=== PATIENT | female | born 1970 | race Caucasian/White ===

== ENCOUNTER 2019-03-24 10:20 | Emergency (ER) | payer MEDICAID ==
[~2019-03-24] VITALS: Ht 160 cm; Wt 47.6 kg
[2019-03-24 10:45] VITALS: BP 101/66
== END 2019-03-24 13:04 | disposition home or self-care (01) ==
LOC: ER 10:20
DX: K72.90 Hepatic failure, unspecified without coma (principal); Z76.0 Encounter for issue of repeat prescription

== ENCOUNTER 2019-06-06 09:07 | Emergency (ER) | payer MEDICAID ==
[~2019-06-06] VITALS: Ht 160 cm; Wt 47.6 kg
[2019-06-06 11:25] VITALS: BP 101/58
[2019-06-06 13:36] LABS: BUN/Creatinine Ratio 12.7; Calcium 8.6 mg/dL (8.5-10.1); Potassium 3.9 mmol/L (3.5-5.1)
== END 2019-06-06 14:39 | disposition home or self-care (01) ==
LOC: ER 09:07
DX: K72.90 Hepatic failure, unspecified without coma (principal); Z76.0 Encounter for issue of repeat prescription; Z88.0 Allergy status to penicillin
CPT/HCPCS: 36415; 80048

== ENCOUNTER 2019-07-18 07:28 | Emergency (ER) | payer MEDICAID ==
[~2019-07-18] VITALS: Ht 160 cm; Wt 45.4 kg
[2019-07-18 08:07] VITALS: BP 93/58
== END 2019-07-18 09:10 | disposition home or self-care (01) ==
LOC: ER 07:28
DX: K74.60 Unspecified cirrhosis of liver (principal); Z76.0 Encounter for issue of repeat prescription; Z88.0 Allergy status to penicillin

== ENCOUNTER 2019-11-14 14:47 | Emergency (ER) | payer MEDICAID ==
[~2019-11-14] VITALS: Ht 160 cm; Wt 47.6 kg
[2019-11-14 15:01] VITALS: BP 94/62
== END 2019-11-14 16:33 | disposition home or self-care (01) ==
LOC: ER 14:47
DX: K74.60 Unspecified cirrhosis of liver (principal); Z76.0 Encounter for issue of repeat prescription

== ENCOUNTER 2019-12-04 18:54 | Inpatient (IN) | payer MEDICAID ==
[~2019-12-04] VITALS: Ht 160 cm; Wt 50.1 kg
[2019-12-04] MEDS ORDERED: SODIUM CHLORIDE 0.9% 1,000 ML IV ONE (19:30)
[2019-12-04] MEDS ORDERED: HYDROcodone-ACET 10/325MG TAB PO ONE (23:30)
[2019-12-05 00:15] LABS: Hematocrit 37.9 % (36.0-46.0); Hemoglobin 12.7 g/dL (12.2-16.2); Mean Corpuscular Hemoglobin 28.8 pg (28.0-32.0); Mean Corpuscular Hgb Conc. 33.6 g/dL (32.0-36.0); Mean Corpuscular Volume 85.7 fL (80.0-100.0); Platelet Count (auto) 390 10^3/uL (140-450); Red Blood Cells 4.42 10^6/uL (4.0-5.20); Red Cell Distribution Width 12.4 % (11.8-14.3); White Blood Cell 17.6 10^3/uL (4.4-10.8)
[2019-12-05 00:19] LABS: Basophils % (manual) 0 (0.0-2.0); Blast Cells 0; Metamyelocytes % 0; Myelocytes % 0; Promyelocytes % 0
[2019-12-05 00:27] LABS: Albumin 2.7 g/dL (3.4-5.0); Anion Gap 9 (5-15); Blood Urea Nitrogen 10 mg/dL (7-18); Calcium 8.5 mg/dL (8.5-10.1); Carbon Dioxide 24 mmol/L (21-32); Chloride 99 mmol/L (98-107); Potassium 3.5 mmol/L (3.5-5.1); Sodium 132 mmol/L (136-145)
[2019-12-05 00:30] LABS: Alanine Aminotransferase 20 U/L (13-56); Aspartate Aminotransferase 20 U/L (15-37); GFR African American 95 mL/min; GFR Non-African American 78 mL/min; Glucose 110 mg/dL (74-106)
[2019-12-05 00:33] LABS: Alkaline Phosphatase 103 U/L (45-117); Bilirubin, Total 0.8 mg/dL (0.2-1.0); Total Protein 7.7 g/dL (6.4-8.2)
[2019-12-05 01:17] LABS: Band Neutrophils % (manual) 6; Eosinophils % (manual) 2 (0-7); Lymphocytes % (manual) 7 (10.0-50.0); Monocytes % (manual) 5 (0-12); Reactive Lymphocytes 1
[2019-12-05] MEDS ORDERED: cefTRIAXone SOD 1,000 MG VL IM ONE (02:45)
[2019-12-05] MEDS ORDERED: CLINDAMYCIN HCL 150 MG CAP PO ONE (02:45)
[2019-12-05] MEDS ORDERED: ONDANSETRON HCL 4 MG/2 ML VIAL IV PRN (06:30)
[2019-12-05] MEDS ORDERED: LORazepam 0.5 MG TAB PO PRN (06:30)
[2019-12-05] MEDS ORDERED: DOCUSATE SOD 100 MG CAP PO PRN (06:30)
[2019-12-05] MEDS ORDERED: ACETAMINOPHEN 325 MG TAB PO PRN (06:30)
[2019-12-05 08:36] LABS: Basophils # (auto) 0 10 ^3/uL (0-0.2); Basophils % (auto) 0.3 % (0.0-2.0); Eosinophils # (auto) 0.2 10 ^3/uL (0-0.8); Eosinophils % (auto) 1.5 % (0.0-7.0); Hematocrit 40.3 % (36.0-46.0); Hemoglobin 13.1 g/dL (12.2-16.2); Lymphocytes # (auto) 0.9 10 ^3/uL (0.4-5.4); Mean Corpuscular Hemoglobin 28.4 pg (28.0-32.0); Mean Corpuscular Hgb Conc. 32.4 g/dL (32.0-36.0); Mean Corpuscular Volume 87.8 fL (80.0-100.0); Monocytes # (auto) 1.7 10 ^3/uL (0-1.3); Monocytes % (auto) 11.1 % (0.0-12.0); Neutrophils # (auto) 12.6 10 ^3/uL (1.6-8.6); Neutrophils % (auto) 81.1 % (37.0-80.0); Platelet Count (auto) 382 10^3/uL (140-450); Red Blood Cells 4.59 10^6/uL (4.0-5.20); Red Cell Distribution Width 12.6 % (11.8-14.3); White Blood Cell 15.5 10^3/uL (4.4-10.8)
[2019-12-05 08:55] LABS: Calcium 9.2 mg/dL (8.5-10.1); Potassium 3.5 mmol/L (3.5-5.1)
[2019-12-05 08:58] LABS: BUN/Creatinine Ratio 12.5
[2019-12-05] MEDS ORDERED: cefTRIAXone 1GM/50ML D5W 50 ML IV SCH (10:00)
[2019-12-05] MEDS: CLINDAMYCIN 600MG IV 50 ML IV SCH ×2 (12:00→15:13)
[2019-12-05] MEDS: HYDROcodone-ACET 5/325MG TAB PO PRN (12:04)
[2019-12-05] MEDS: PIPERACILLIN-TAZOB 3.375GM 100 ML IV SCH (18:43)
[2019-12-05 18:48] LABS: Urine Bacteria FEW /hpf (None Seen); Urine Blood Negative /uL (Negative); Urine Specific Gravity 1.011 (1.001-1.035); Urine WBC 8 /hpf (0 - 5)
[2019-12-05 19:20] LABS: Alcohol, Urine < 3.0 mg/dL (0-10); Amphetamine Screen, Urine NEGATIVE (NEGATIVE); Barbiturate Scree,Urine NEGATIVE (NEGATIVE); Benzodiazephine Screen, Urine NEGATIVE (NEGATIVE); Cannabinoid Screen, Urine NEGATIVE (NEGATIVE); Cocaine Screen, Urine NEGATIVE (NEGATIVE)
[2019-12-05 19:28] LABS: Opiate Scree,Urine POSITIVE (NEGATIVE); Phencyclidine Screen, Urine NEGATIVE (NEGATIVE)
[2019-12-05 20:43] VITALS: BP 107/69
[2019-12-05] MEDS: MORPHINE SULF INJ 2 MG/ML SYRINGE 1ML IV PRN (21:17)
[2019-12-05] MEDS: TEMAZEPAM 15 MG CAP PO PRN (22:10)
[2019-12-06] MEDS: PIPERACILLIN-TAZOB 3.375GM 100 ML IV SCH ×5 (00:28→23:30)
[2019-12-06 01:23] VITALS: BP 107/69
[2019-12-06] MEDS ORDERED: SPIR25TA8 PO (02:12)
[2019-12-06] MEDS ORDERED: FURO1TAB33 PO (02:12)
[2019-12-06] MEDS ORDERED: POTA10TA51 PO (02:12)
[2019-12-06] MEDS: MORPHINE SULF INJ 2 MG/ML SYRINGE 1ML IV PRN ×5 (03:15→21:10)
[2019-12-06 05:00] VITALS: BP 123/70
[2019-12-06 08:05] LABS: Basophils # (auto) 0.1 10 ^3/uL (0-0.2); Basophils % (auto) 0.4 % (0.0-2.0); Eosinophils # (auto) 0.2 10 ^3/uL (0-0.8); Eosinophils % (auto) 1.7 % (0.0-7.0); Hematocrit 31.7 % (36.0-46.0); Hemoglobin 10.4 g/dL (12.2-16.2); Lymphocytes # (auto) 1.4 10 ^3/uL (0.4-5.4); Mean Corpuscular Hemoglobin 28.3 pg (28.0-32.0); Mean Corpuscular Hgb Conc. 32.7 g/dL (32.0-36.0); Mean Corpuscular Volume 86.4 fL (80.0-100.0); Monocytes # (auto) 1.5 10 ^3/uL (0-1.3); Monocytes % (auto) 11.6 % (0.0-12.0); Neutrophils # (auto) 9.5 10 ^3/uL (1.6-8.6); Neutrophils % (auto) 75.3 % (37.0-80.0); Platelet Count (auto) 381 10^3/uL (140-450); Red Blood Cells 3.67 10^6/uL (4.0-5.20); Red Cell Distribution Width 12.2 % (11.8-14.3); White Blood Cell 12.6 10^3/uL (4.4-10.8)
[2019-12-06 08:19] LABS: Magnesium 2.2 mg/dL (1.6-2.6); Potassium 3.3 mmol/L (3.5-5.1)
[2019-12-06 08:34] LABS: BUN/Creatinine Ratio 8.2; Bilirubin, Total 0.4 mg/dL (0.2-1.0); CRP High Sensitivity 13.2 mg/dL (< 0.3); Calcium 8.3 mg/dL (8.5-10.1); Phosphorus 2.4 mg/dL (2.5-4.90); Total Protein 6.2 g/dL (6.4-8.2)
[2019-12-06 09:00] VITALS: BP 124/77
[2019-12-06 09:02] LABS: INR 1.01 (0.9-1.15); Partial Thromboplastin Time 38.9 sec (23.64-32.05)
[2019-12-06 09:31] LABS: Hepatitis B Surface Antibody Negative
[2019-12-06 10:03] LABS: Hepatitis A Total Antibody Negative
[2019-12-06] MEDS ORDERED: POTASSIUM CHL 20 Meq TABLET PO ONE (10:15)
[2019-12-06] MEDS: HYDROcodone-ACET 5/325MG TAB PO PRN ×2 (10:30→23:00)
[2019-12-06 11:44] LABS: Hepatitis B Core Total AB Negative; Hepatitis B Surface Antigen Negative (Negative); Hepatitis C Antibody Negative (Negative)
[2019-12-06] MEDS: TEMAZEPAM 15 MG CAP PO PRN (23:31)
[2019-12-07 00:05] VITALS: BP 101/67
[2019-12-07] MEDS: MORPHINE SULF INJ 2 MG/ML SYRINGE 1ML IV PRN ×4 (01:35→14:25)
[2019-12-07] MEDS: HYDROcodone-ACET 5/325MG TAB PO PRN (04:50)
[2019-12-07 05:40] VITALS: BP 91/57
[2019-12-07] MEDS: PIPERACILLIN-TAZOB 3.375GM 100 ML IV SCH ×2 (05:50→12:00)
[2019-12-07 09:00] VITALS: BP 97/58
[2019-12-07 13:00] VITALS: BP 98/59
[2019-12-07 16:00] VITALS: BP 98/59
== END 2019-12-07 16:59 | disposition home or self-care (01) | DRG 720 ==
LOC: ER 18:54 → TELE 18:55 → TELE-WESTW 12-05 20:52
PROVIDERS: ADMIT Hospitalist; ATTEND Internal Medicine
PROC: 05HY33Z Insertion of Infusion Device into Upper Vein, Percutaneous Approach (ICD-10-PCS; principal; 2019-12-05)
DX: A41.9 Sepsis, unspecified organism (principal); L03.116 Cellulitis of left lower limb; K74.60 Unspecified cirrhosis of liver; F11.10 Opioid abuse, uncomplicated; M60.009 Infective myositis, unspecified site; F15.10 Other stimulant abuse, uncomplicated; R00.0 Tachycardia, unspecified; Z88.0 Allergy status to penicillin; Z81.1 Family history of alcohol abuse and dependence; Z79.899 Other long term (current) drug therapy; E44.0 Moderate protein-calorie malnutrition
CPT/HCPCS: 36415; 73700; 80048; 80053; 80061; 80307; 81001; 82550; 83036; 83605; 83735; 84100; 84439; 84443; 85007; 85025; 85027; 85610; 85730; 86141; 86703; 86704; 86706; 86708; 86803; 87040; 87340; 93005; 96361; 96365; 96367; 96372; 96375; G0378; J0696; J2543

== ENCOUNTER 2020-01-21 10:06 | Emergency (ER) | payer MEDICAID ==
[~2020-01-21] VITALS: Ht 160 cm; Wt 45.4 kg
[~2020-01-21 10:06] MED LIST: FURO1TAB33 PO; POTA10TA51 PO; SPIR25TA8 PO
[2020-01-21 11:50] VITALS: BP 103/64
== END 2020-01-21 12:03 | disposition home or self-care (01) ==
LOC: ER 10:06
DX: K74.60 Unspecified cirrhosis of liver (principal); Z76.0 Encounter for issue of repeat prescription

== ENCOUNTER 2020-02-12 14:59 | Emergency (ER) | payer MEDICAID ==
[~2020-02-12] VITALS: Ht 165.1 cm; Wt 59.0 kg
[2020-02-12 15:51] LABS: Hemoglobin 12.7 g/dL (12.2-16.2); Mean Corpuscular Hemoglobin 26.8 pg (28.0-32.0); Mean Corpuscular Hgb Conc. 32.7 g/dL (32.0-36.0); Mean Corpuscular Volume 81.9 fL (80.0-100.0); Platelet Count (auto) 285 10^3/uL (140-450); Red Blood Cells 4.76 10^6/uL (4.0-5.20); Red Cell Distribution Width 13.1 % (11.8-14.3); White Blood Cell 8.3 10^3/uL (4.4-10.8)
[2020-02-12 15:55] LABS: Basophils % (manual) 0 (0.0-2.0); Blast Cells 0; Metamyelocytes % 0; Myelocytes % 0; Promyelocytes % 0; Reactive Lymphocytes 0
[2020-02-12 16:08] LABS: Albumin 3.3 g/dL (3.4-5.0); Anion Gap 4 (5-15); Blood Urea Nitrogen 8 mg/dL (7-18); Calcium 8.9 mg/dL (8.5-10.1); Carbon Dioxide 25 mmol/L (21-32); Chloride 104 mmol/L (98-107); Glucose 106 mg/dL (74-106); Potassium 3.6 mmol/L (3.5-5.1); Sodium 133 mmol/L (136-145)
[2020-02-12 16:12] LABS: Alanine Aminotransferase 17 U/L (13-56); Alkaline Phosphatase 87 U/L (45-117); Aspartate Aminotransferase 15 U/L (15-37); Bilirubin, Total 0.4 mg/dL (0.2-1.0); GFR African American 87 mL/min; GFR Non-African American 72 mL/min; Total Protein 7.4 g/dL (6.4-8.2)
[2020-02-12 16:30] LABS: Band Neutrophils % (manual) 3; Eosinophils % (manual) 1 (0-7); Lymphocytes % (manual) 16 (10.0-50.0); Monocytes % (manual) 11 (0-12)
[2020-02-12] MEDS ORDERED: SODIUM CHLORIDE 0.9% 2,000 ML IV ONE (19:45)
[2020-02-12] MEDS ORDERED: SODIUM CHLORIDE 0.9% 1,000 ML IV ONE (22:00)
[2020-02-12 22:37] LABS: INR 1.03 (0.9-1.15); Partial Thromboplastin Time 31.6 sec (23.0-31.2)
[2020-02-12 23:34] VITALS: BP 116/64
[2020-02-13 00:38] LABS: Urine Bacteria FEW /hpf (None Seen); Urine Blood Negative /uL (Negative); Urine Mucus FEW (None Seen); Urine Specific Gravity 1.014 (1.001-1.035); Urine WBC 1 /hpf (0 - 5)
[2020-02-13 00:50] LABS: Alcohol, Urine < 3.0 mg/dL (0-10); Amphetamine Screen, Urine NEGATIVE (NEGATIVE); Barbiturate Scree,Urine NEGATIVE (NEGATIVE); Benzodiazephine Screen, Urine NEGATIVE (NEGATIVE); Cannabinoid Screen, Urine NEGATIVE (NEGATIVE); Cocaine Screen, Urine NEGATIVE (NEGATIVE); Opiate Scree,Urine POSITIVE (NEGATIVE); Phencyclidine Screen, Urine NEGATIVE (NEGATIVE)
== END 2020-02-13 00:57 | disposition home or self-care (01) ==
LOC: ER 14:59 → EDBD 14:59 → ER 02-13 00:57
DX: R07.89 Other chest pain (principal); K21.9 Gastro-esophageal reflux disease without esophagitis; F41.9 Anxiety disorder, unspecified; Z88.0 Allergy status to penicillin; Z79.899 Other long term (current) drug therapy
CPT/HCPCS: 36415; 71045; 80053; 80307; 80320; 81001; 84484; 84702; 85007; 85027; 85379; 85610; 85730; 93005; 96360; 96361; 99285; J7030

== ENCOUNTER 2020-12-25 09:06 | Emergency (ER) | payer MEDICAID ==
[~2020-12-25] VITALS: Ht 160 cm; Wt 38.6 kg
[2020-12-25 11:50] VITALS: BP 121/80
== END 2020-12-25 12:16 | disposition home or self-care (01) ==
LOC: ER 09:06
DX: L03.113 Cellulitis of right upper limb (principal); F11.10 Opioid abuse, uncomplicated; Z88.0 Allergy status to penicillin

== ENCOUNTER 2022-02-02 13:16 | Emergency (ER) | payer MEDICAID ==
[~2022-02-02] VITALS: Ht 160 cm; Wt 45.5 kg
[2022-02-02] MEDS ORDERED: ONDA-144 PO (14:12)
[2022-02-02] MEDS ORDERED: LORazepam 0.5 MG TAB PO ONE (14:15)
[2022-02-02 14:36] VITALS: BP 130/92
== END 2022-02-02 14:39 | disposition home or self-care (01) ==
LOC: ER 13:17
DX: F11.23 Opioid dependence with withdrawal (principal)

== ENCOUNTER 2024-12-25 07:06 | Emergency (ER) | payer MEDICAID ==
[~2024-12-25] VITALS: Ht 160 cm; Wt 53.1 kg
[~2024-12-25 07:06] MED LIST changes: +ONDA-144 PO; +POTA-36 PO; -POTA10TA51 PO
--- NOTE | 2024-12-25 07:22 | ED.PDOC ---
History of Present Illness(SKN HPI Comments THIS IS A 54-YEAR-OLD FEMALE WHO PRESENTS TO THE WITH A C/C OF SCALPEL RASH FOR X3 WEEKS. PATIENT REPORTS GOING TO URGENT CARE TWICE AND GIVEN STEROIDS WITH PRESCRIBED CLINDAMYCIN MEDICATION. PATIENT REPORTS NO RELIEF. PATIENT HAS NO FURTHER COMPLAINTS AT THIS TIME AND OTHERWISE DENIES FURTHER ASSOCIATED SYMPTOMS OF NAUSEA, VOMITING, FEVER, CHILLS, FOR DIZZINESS. PATIENT IS ALERT, ORIENTED X 4, AND HAS STEADY GAIT. Chief Complaint: Rash Time Seen by MD: 07:17 Primary Care Provider: DENIES History of Present Illness: Nurses Notes, Medications, Allergies Allergies: Coded Allergies: Penicillins (Verified Allergy, Severe, 04/25/19) Home Meds Active Scripts Clotrimazole (Lotrimin) 1 Applic Ap, 1 APPLIC TOP BID, #60 ML Prov:BETH QUINTANA 12/25/24 Cephalexin Monohydrate (Cephalexin) 500 Mg Cap, 1 CAP PO TID, #30 CAP Prov:BETH QUINTANA 12/25/24 Ondansetron (Zofran) 4 Mg Tab, 4 MG PO Q8HPRN PRN for 7 Days, #21 TAB Prov:FAUSTINA CONNER MD 02/02/22 Reported Medications Potassium Chloride (POTASSIUM CHLORIDE CR) 10 Meq Tb, 1 TAB PO DAILY, #90 TAB 3 Refills 12/06/19 Spironolactone (Spironolactone) 25 Mg Tab, 1 TAB PO BID, #90 TAB 1 Refill 12/06/19 Furosemide (Lasix) 20 Mg Tb, 1 TAB PO DAILY, #90 TAB 1 Refill 12/06/19 Information Source: Patient Mode of Arrival: Ambulatory Severity: Mild, Moderate Timing: Weeks Duration: Since onset Prehospital treatment: None Location: Face, Other (SCALP ) Mechanism: Spontaneous Onset Developed: Pruritus, Rash Object: None Condition of Object: None Wound Type: None Immunization Status of Animal: Current Tetanus: UTD History of: None Associated Signs and Symptoms: Redness, Other (RASH TO SCALP ) Past Medical History PAST MEDICAL HISTORY: Anxiety, Liver Surgical History: Denies all surgeries 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 TUMBLER OPERATOR 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: No 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 History Family History Family History: Reviewed,noncontributory to illness Social History Smoker: Non-Smoker Alcohol: Sober Drugs: Heroin Lives In: Home Constitutional: denies: chills, diaphoresis, fatigue, fever, malaise, sweats, weakness, others EENTM: denies: blurred vision, double vision, ear bleeding, ear discharge, ear drainage, ear pain, ear ringing, eye pain, eye redness, hearing loss, mouth pain, mouth swelling, nasal discharge, nose bleeding, nose congestion, nose pain, photophobia, tearing, throat pain, throat swelling, voice changes, others Respiratory: denies: cough, hemoptysis, orthopnea, SOB at rest, shortness of breath, SOB with excertion, stridor, wheezing, others Cardiovascular: denies: chest pain, dizzy spells, diaphoresis, Dyspnea on exertion, edema, irregular heart beat, left arm pain, lightheadedness, palpitations, PND, syncope, others Gastrointestinal: denies: abdomen distended, abdominal pain, blood streaked bowels, constipated, diarrhea, dysphagia, difficulty swallowing, hematemesis, melena, nausea, poor appetite, poor fluid intake, rectal bleeding, rectal pain, vomiting, others Genitourinary: denies: abnormal vagina bleeding, burning, dyspareunia, dysuria, flank pain, frequency, hematuria, incontinence, pain, , vagina discharge, urgency, others Neurological: denies: dizziness, fainting, headache, left sided numbness, left sided weakness, numbness, paresthesia, pre-existing deficit, right sided numbness, right sided weakness, seizure, speech problems, tingling, tremors, weakness, others Musculoskeletal: denies: back pain, gout, joint pain, joint swelling, muscle pain, muscle stiffness, neck pain, others Integumetry: reports: rash; denies: bruises, change in color, change in hair/nails, dryness, laceration, lesions, lumps, wounds, others Allergic/Immunocompromised: denies: Difficulty Healing, Frequent Infections, Hives, Itching, others Hematologic/Lymphatic: denies: anemia, blood clots, easy bleeding, easy bruising, swollen glands, others Endocrine: denies: excessive hunger, excessive sweating, excessive thirst, excessive urination, flushing, intolerance to cold, intolerance to heat, unexplained weight gain, unexplained weight loss, others Psychiatric: denies: anxiety, bipolar disorder, depression, hopeless, panic disorder, schizophrenia, sleepless, suicidal, others All Other Systems: Reviewed and Negative Physical Exam General Appearance: No Apparent Distress, Normal HEENT: Normal ENT Inspection, PERRL/EOMI, Pharynx Normal, TMs Normal Neck: Full Range of Motion, Non-Tender, Normal, Normal Inspection Respiratory: Chest Non-Tender, Lungs Clear, No Accessory Muscle Use, No Respiratory Distress, Normal Breath Sounds Cardiovascular: No Edema, No JVD, No Murmur, No Gallop, Normal Peripheral Pulses, Regular Rate/Rhythm Breast Exam: Deferred Gastrointestinal: No Organomegaly, Non Tender, No Pulsatile Mass, Normal Bowel Sounds, Soft Genitalia: Deferred Pelvic: Deferred Rectal: Deferred Extremities: No calf tenderness, Normal capillary refill, Normal inspection, Normal range of motion, Non-tender, No pedal edema Musculoskeletal : Apperance: Normal Neurologic: Alert, tennis player II-XII nml as Tested, No Motor Deficits, Normal Affect, Normal Mood, No Sensory Deficits Cerebellar Function: Normal Reflexes: Normal Skin: Dry, Normal Color, Rash (PAPULAR AND MACULAR SKIN RASH ON SCALP WITH LOCALIZED REDNESS AND TENDERNESS, NO OPEN WOUND SEEN AND DRAINAGE. ), Warm Peripheral Pulses: 2+ carotid (R), 2+ carotid (L) Lymphatic: No Adenopathy Was a procedure done? Was a procedure done?: No Differential Diagnosis (INTG) Differential Diagnosis: Cellulitis Differential Diagnosis: Candidiasis, Impetigo, Intertrigo, Tinea X-Ray, Labs, Meds, VS Vital Signs Date Time Temp Pulse Resp B/P (MAP) Pulse Ox O2 Delivery O2 Flow Rate FiO2 12/25/24 07:07 98.1 106 18 123/70 98 98.1 X-Ray, Labs, Meds, VS Comment EXTERNAL MEDICAL RECORDS REVIEWED: [NONE] INDEPENDENT HISTORIANS: [NONE] SOCIAL DETERMINANTS OF HEALTH: [NONE] LABS ORDERED: NONE REVIEWED AND INTERPRETED RESULTS: NONE IMAGING ORDERED: NONE TREATMENTS ORDERED: NONE PROCEDURES PERFORMED: NONE CRITICAL CARE TIME: NONE I HAVE DISCUSSED THE PATIENT WITH THE ATTENDING PHYSICIAN DR. RIVERA AND SHE AGREES WITH THE PATIENT'S PLAN OF CARE AND DISPOSITION. BASED ON HISTORY OF PRESENT ILLNESS, AND PHYSICAL EXAM, PATIENT WILL BE DISCHARGED HOME. DISCUSSED PLAN FOR DISCHARGE HOME WITH RX 500MG CEPHALEXIN AND LOTRIMIN ANTIFUNGAL TOPICAL TX TWICE DAILY . MEDICATION WARNINGS GIVEN. Images Reviewed?: Images reviewed and evaluated by me Time of 1ST Reevaluation: 07:53 Reevaluation 1ST: Unchanged Patient Education/Counseling: Diagnosis, Treatment, Need For Follow Up Family Education/Counseling: Diagnosis, Treatment, No Family Present Medical Screening: No EMC Exist At This Time SEPSIS Sepsis Screen Vital Signs Date Time Temp Pulse Resp B/P (MAP) Pulse Ox O2 Delivery O2 Flow Rate FiO2 12/25/24 07:07 98.1 106 18 123/70 98 98.1 Departure 1 Departure Time of Disposition: 08:00 Impression: Primary Impression: Tinea capitis Additional Impression: Folliculitis of scalp Disposition: HOME / SELF CARE / HOMELESS Condition: Stable Additional Instructions: FOLLOW-UP WITH PCP IN 1 TO 2 DAYS. TAKE MEDICATIONS PRESCRIBED. RETURN TO ED FOR ANY NEW OR WORSENING SYMPTOMS. e-Prescriptions Clotrimazole (Lotrimin) 1 Applic Ap 1 APPLIC TOP BID, #60 ML Prov: BETH QUINTANA 12/25/24 Cephalexin Monohydrate (Cephalexin) 500 Mg Cap 1 CAP PO TID, #30 CAP Prov: BETH QUINTANA 12/25/24 Discharged With: Self Critical Care Note Critical Care Time?: No Stability Stability form required: No Heart Score Heart Score: Heart Score Response (Comments) Value History N/A 0 EKG N/A 0 Age N/A 0 Risk Factors N/A 0 Troponin N/A 0 Total 0 I personally scribed for BETH QUINTANA ([email or web address]) on 12/25/24 at 07:22. Electronically submitted by Geeta Whitman ([employer]). I personally scribed for BETH QUINTANA ([email or web address]) on 12/25/24 at 07:25. Electronically submitted by Geeta Whitman ([employer]). I personally scribed for BETH QUINTANA ([email or web address]) on 12/25/24 at 07:35. Electronically submitted by Geeta Whitman ([employer]). I personally scribed for BETH QUINTANA ([email or web address]) on 12/25/24 at 07:44. Electronically submitted by Geeta Whitman ([employer]). BETH QUINTANA Dec 25, 2024 07:22
[2024-12-25] MEDS ORDERED: CLOT1CRE56 TOP (07:44)
[2024-12-25] MEDS ORDERED: CEPH500C PO (07:44)
[2024-12-25 07:52] VITALS: BP 105/68; PULSE 106; RESP 18; TEMP 97.7; O2SAT 95
== END 2024-12-25 07:54 | disposition home or self-care (01) ==
LOC: ER 07:06
DX: B35.0 Tinea barbae and tinea capitis (principal); L02.821 Furuncle of head [any part, except face]; Z79.899 Other long term (current) drug therapy; Z88.0 Allergy status to penicillin

== ENCOUNTER 2025-01-01 06:15 | Emergency (ER) | payer MEDICAID ==
[~2025-01-01] VITALS: Ht 160 cm; Wt 52.0 kg
[~2025-01-01 06:15] MED LIST changes: +CEPH500C PO; +CLOT1CRE56 TOP
[2025-01-01 06:18] VITALS: BP 107/54; TEMP 98.2
--- NOTE | 2025-01-01 06:41 | ED.PDOC ---
History of Present Illness HPI Comments THIS IS A 54-YEAR-OLD FEMALE WHO PRESENTS TO THE WITH A C/C OF SCALPEL RASH FOR X4 WEEKS. PATIENT REPORTS GOING TO URGENT CARE TWICE AND GIVEN STEROIDS WITH PRESCRIBED CLINDAMYCIN MEDICATION. PATIENT REPORTS NO RELIEF. ALSO, PT WAS IN THIS ER LAST WEEK FOR SAME COMPLAINTS. PATIENT HAS NO FURTHER COMPLAINTS AT THIS TIME AND OTHERWISE DENIES FURTHER ASSOCIATED SYMPTOMS OF NAUSEA, VOMITING, FEVER, CHILLS, HEADACHE FOR DIZZINESS. PATIENT IS ALERT, ORIENTED X 4, AND HAS STEADY GAIT. Chief Complaint: Rash Time Seen by MD: 06:34 Primary Care Provider: JFIES Reviewed Notes: Nurses Notes, Medications, Allergies Allergies: Coded Allergies: Penicillins (Verified Allergy, Severe, 04/25/19) Home Meds Active Scripts Hydrocortone (Hydrocortisone 2.5%) 1 Applic Ap, 1 APPLIC TOP BIDP, #30 GRAMS Prov:BETH QUINTANA 01/01/25 Sulfamethoxazole W/Trimethopri (Bactrim Ds Tablet) 1 Tab Tb, 1 TAB PO BID for 10 Days, #20 TAB Prov:BETH QUINTANA 01/01/25 Clotrimazole (Lotrimin) 1 Applic Ap, 1 APPLIC TOP BID, #60 ML Prov:BETH QUINTANA 12/25/24 Cephalexin Monohydrate (Cephalexin) 500 Mg Cap, 1 CAP PO TID, #30 CAP Prov:BETH QUINTANA 12/25/24 Ondansetron (Zofran) 4 Mg Tab, 4 MG PO Q8HPRN PRN for 7 Days, #21 TAB Prov:FAUSTINA CONNER MD 02/02/22 Reported Medications Potassium Chloride (POTASSIUM CHLORIDE CR) 10 Meq Tb, 1 TAB PO DAILY, #90 TAB 3 Refills 12/06/19 Spironolactone (Spironolactone) 25 Mg Tab, 1 TAB PO BID, #90 TAB 1 Refill 12/06/19 Furosemide (Lasix) 20 Mg Tb, 1 TAB PO DAILY, #90 TAB 1 Refill 12/06/19 Information Source: Patient Mode of Arrival: Ambulatory Severity: Moderate Timing: Weeks Duration: Since onset Prehospital treatment: None Medication Refill: For: Other (SCALP RASH RECHECK ) Past Medical History PAST MEDICAL HISTORY: Anxiety, Liver Surgical History: Denies all surgeries SOFTWARE SUPPORT 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: No Pertinent SOFTWARE SUPPORT ANALYST History Family History Family History: Reviewed,noncontributory to illness Social History Smoker: Non-Smoker Alcohol: Sober Drugs: Heroin Lives In: Home Constitutional: denies: chills, diaphoresis, fatigue, fever, malaise, sweats, weakness, others EENTM: denies: blurred vision, double vision, ear bleeding, ear discharge, ear drainage, ear pain, ear ringing, eye pain, eye redness, hearing loss, mouth pain, mouth swelling, nasal discharge, nose bleeding, nose congestion, nose pain, photophobia, tearing, throat pain, throat swelling, voice changes, others Respiratory: denies: cough, hemoptysis, orthopnea, SOB at rest, shortness of breath, SOB with excertion, stridor, wheezing, others Cardiovascular: denies: chest pain, dizzy spells, diaphoresis, Dyspnea on exertion, edema, irregular heart beat, left arm pain, lightheadedness, palpitations, PND, syncope, others Gastrointestinal: denies: abdomen distended, abdominal pain, blood streaked bowels, constipated, diarrhea, dysphagia, difficulty swallowing, hematemesis, melena, nausea, poor appetite, poor fluid intake, rectal bleeding, rectal pain, vomiting, others Genitourinary: denies: abnormal vagina bleeding, burning, dyspareunia, dysuria, flank pain, frequency, hematuria, incontinence, pain, , vagina discharge, urgency, others Neurological: denies: dizziness, fainting, headache, left sided numbness, left sided weakness, numbness, paresthesia, pre-existing deficit, right sided numbness, right sided weakness, seizure, speech problems, tingling, tremors, weakness, others Musculoskeletal: denies: back pain, gout, joint pain, joint swelling, muscle pain, muscle stiffness, neck pain, others Integumetry: reports: lesions, rash, wounds; denies: bruises, change in color, change in hair/nails, dryness, laceration, lumps, others Allergic/Immunocompromised: denies: Difficulty Healing, Frequent Infections, Hives, Itching, others Hematologic/Lymphatic: denies: anemia, blood clots, easy bleeding, easy bruising, swollen glands, others Endocrine: denies: excessive hunger, excessive sweating, excessive thirst, excessive urination, flushing, intolerance to cold, intolerance to heat, unexplained weight gain, unexplained weight loss, others Psychiatric: denies: anxiety, bipolar disorder, depression, hopeless, panic disorder, schizophrenia, sleepless, suicidal, others All Other Systems: Reviewed and Negative Physical Exam General Appearance: No Apparent Distress, Normal HEENT: Normal ENT Inspection, PERRL/EOMI, Pharynx Normal, TMs Normal Neck: Full Range of Motion, Lymphadenopathy (L) (TENDERNESS LEFT POSTERIOR CERVICAL LYMPH NODE, NO SWELLING AND REDNESS. ), Non-Tender, Normal Inspection Respiratory: Chest Non-Tender, Lungs Clear, No Accessory Muscle Use, No Respiratory Distress, Normal Breath Sounds Cardiovascular: No Edema, No JVD, No Murmur, No Gallop, Normal Peripheral Pulses, Regular Rate/Rhythm Breast Exam: Deferred Gastrointestinal: No Organomegaly, Non Tender, No Pulsatile Mass, Normal Bowel Sounds, Soft Genitalia: Deferred Pelvic: Deferred Rectal: Deferred Extremities: No calf tenderness, Normal capillary refill, Normal inspection, Normal range of motion, Non-tender, No pedal edema Musculoskeletal : Apperance: Normal Neurologic: Alert, landscape engineer II-XII nml as Tested, No Motor Deficits, Normal Affect, Normal Mood, No Sensory Deficits Cerebellar Function: Normal Reflexes: Normal Skin: Dry, Rash (MULTIPLE PAPULAR AND MACULAR SKIN RASH AND BUMPS ON THE SCALP, NO PUS DRAINAGE. SUSPECT SOFT TISSUE INFECTION DUE TO TINEA CAPITIS. ), Warm Peripheral Pulses: 2+ carotid (R), 2+ carotid (L) Lymphatic: No Adenopathy Was a procedure done? Was a procedure done?: No Differential Dx Considerations may include: TINEA CAPITIS, SUSPECT SOFT TISSUE INFECTION, FOLLICULITIS OF SCALP X-Ray, Labs, Meds, VS Vital Signs Date Time Temp Pulse Resp B/P (MAP) Pulse Ox O2 Delivery O2 Flow Rate FiO2 01/01/25 07:05 113 18 96 Room Air 01/01/25 06:18 98.2 113 18 107/54 96 98.2 Current Medications Medications (Trade) Dose Ordered Sig/Vicky Route Start Time Stop Time Status Last Admin Ceftriaxone Sodium (Rocephin) 1,000 mg ONCE ONCE IM 01/01/25 06:45 01/01/25 06:46 DC 01/01/25 06:49 X-Ray, Labs, Meds, VS Comment EXTERNAL MEDICAL RECORDS REVIEWED: [NONE] INDEPENDENT HISTORIANS: [NONE] SOCIAL DETERMINANTS OF HEALTH: [NONE] LABS ORDERED: NONE REVIEWED AND INTERPRETED RESULTS: NONE IMAGING ORDERED: NONE TREATMENTS ORDERED: ROCEPHIN 1G IM PROCEDURES PERFORMED: NONE CRITICAL CARE TIME: NONE I HAVE DISCUSSED THE PATIENT WITH THE ATTENDING PHYSICIAN, DR. BAUMANN, AND SHE AGREES WITH THE PATIENT'S PLAN OF CARE AND DISPOSITION. BASED ON HISTORY OF PRESENT ILLNESS, AND PHYSICAL EXAM, PATIENT WILL BE DISCHARGED HOME. DISCUSSED PLAN FOR DISCHARGE HOME WITH RX: SEPTRA DS AND TRIAMCINOLONE LOTION. MEDICATION WARNINGS GIVEN. SHARED DECISION MAKING: DISCUSSED WITH PATIENT THAT THEIR WORKUP WAS NORMAL. PATIENT INSTRUCTED TO FOLLOW UP WITH PRIMARY CARE PROVIDER IN 1-2 DAYS FOR RE- EVALUATION OF SYMPTOMS. PATIENT VERBALIZES UNDERSTANDING TO RETURN TO ED FOR NEW OR WORSENING SYMPTOMS OR IF FOLLOW UP WITH PCP CANNOT BE OBTAINED. PATIENT FEELS COMFORTABLE GOING HOME AT THIS TIME. ALL QUESTIONS ADDRESSED AT TIME OF DISCHARGE. Time of 1ST Reevaluation: 07:30 Reevaluation 1ST: Improved Patient Education/Counseling: Diagnosis, Treatment, Need For Follow Up Family Education/Counseling: Diagnosis, Treatment, Need For Follow Up Medical Screening: No EMC Exist At This Time SEPSIS Sepsis Screen Date sepsis recognized/suspect: Jan 01, 2025 Time Sepsis recognized/suspect: 621 Recent Procedure: No On Antibiotic Therapy: Yes Respiratory Rate >20: No Heart Rate >90: Yes Temp<36 C (96.8 F) or >38.3 C: No SBP <90 or MAP <65 mmHG: No New Acute Mental Status Change: No Is the patient on CPAP, BIPAP,: No Vital Signs Date Time Temp Pulse Resp B/P (MAP) Pulse Ox O2 Delivery O2 Flow Rate FiO2 01/01/25 07:05 113 18 96 Room Air 01/01/25 06:18 98.2 113 18 107/54 96 98.2 Medications Medications Dose Ordered Sig/Vicky Route Start Time Stop Time Status Last Admin Dose Admin Ceftriaxone Sodium 1,000 mg ONCE ONCE IM 01/01/25 06:45 01/01/25 06:46 DC 01/01/25 06:49 Departure 1 Departure Time of Disposition: 07:30 Impression: Primary Impression: Tinea capitis Additional Impression: Folliculitis of scalp Disposition: 01 HOME / SELF CARE / HOMELESS Condition: Stable Additional Instructions: FOLLOW-UP WITH PCP IN 1 TO 2 DAYS. TAKE MEDICATIONS PRESCRIBED. RETURN TO ED FOR ANY NEW OR WORSENING SYMPTOMS. e-Prescriptions Hydrocortone (Hydrocortisone 2.5%) 1 Applic Ap 1 APPLIC TOP BIDP, #30 GRAMS Prov: BETH QUINTANA 01/01/25 Sulfamethoxazole W/Trimethopri (Bactrim Ds Tablet) 1 Tab Tb 1 TAB PO BID for 10 Days, #20 TAB Prov: BETH QUINTANA 01/01/25 Discharged With: Self Critical Care Note Critical Care Time?: No Stability Stability form required: No Heart Score Heart Score: Heart Score Response (Comments) Value History N/A 0 EKG N/A 0 Age N/A 0 Risk Factors N/A 0 Troponin N/A 0 Total 0 I personally scribed for BETH QUINTANA ([email or web address]) on 01/01/25 at 06:41. Electronically submitted by Ho Green ([email or web address]). I personally scribed for BETH QUINTANA ([email or web address]) on 01/01/25 at 07:00. Electronically submitted by Ho Green ([email or web address]). BETH QUINTANA Jan 01, 2025 06:41
[2025-01-01] MEDS ORDERED: HYD25TP TOP (06:46)
[2025-01-01] MEDS ORDERED: BACDST PO (06:46)
[2025-01-01] MEDS: cefTRIAXone SOD 1,000 MG VL IM ONE (06:49)
[2025-01-01 07:05] VITALS: PULSE 113; RESP 18; O2SAT 96
== END 2025-01-01 07:05 | disposition home or self-care (01) ==
LOC: ER 06:39
DX: B35.0 Tinea barbae and tinea capitis (principal); L02.821 Furuncle of head [any part, except face]; Z79.899 Other long term (current) drug therapy; Z88.0 Allergy status to penicillin
CPT/HCPCS: 96372; 99283; J0696